=== PATIENT | female | born 1960 | race Caucasian/White ===

== ENCOUNTER 2022-09-02 08:22 | Outpatient (CLI) | payer OTHER, SELFPAY ==
--- NOTE | 2022-09-02 08:38 | ECG_ITS ---
Measurements Intervals [place] Rate: 69 P: 67 MS: 166 QRS: 53 QRSD: 78 T: 58 QT: 366 QTc: 393 Interpretive Statements SINUS RHYTHM BASELINE ARTIFACT NORMAL ECG NO PREVIOUS ECG AVAILABLE FOR COMPARISON Electronically Signed On 09-03-2022 14:48:45 CDT by Nathanael Ricci M.D.
[2022-09-02 09:32] LABS: Hematocrit 42.7 % (37.0-47.0); Hemoglobin 13.8 g/dL (12.0-15.0)
== END 2022-09-02 08:23 | disposition home or self-care (01) ==
PROVIDERS: Anesthesiology; PCP Hospitalist; Visit Provider Surgery Plastic and Reconstructive Surgery
DX: Z41.1 Encounter for cosmetic surgery (principal)
CPT/HCPCS: 36415; 85014; 85018; 93005

== ENCOUNTER 2022-09-06 00:58 | Day surgery (SDC) | payer OTHER, SELFPAY ==
[2022-08-30 14:21] VITALS: BMI 24.3
--- NOTE | 2022-08-30 14:27 | PC.NURSE ---
Report to the Outpatient Waiting Room, entrance under the green pavilion located off [facility], at time 6:00 on date 09/06/22. Planned Procedure Time: 7:30. Time changes happen often and if your time is changed the preop area will call you the afternoon before. - You and your visitor will be asked to self-screen and do not enter if you have any COVID symptoms. - Only one visitor is requested with a max of two and NO children visitors are allowed at this time. - The patient visitor may be requested to leave or wait in car when not with patient due to distancing restrictions. - A mask is optional within the hospital at this time. Patients may have clear liquids (water, carbonated beverages, clear teas, apple juice) until 3 hours prior to surgery (4:30) with a maximum of 20 ounces. - No food from midnight until time of surgery Take the following medications with a SIP of water the morning of surgery: BUPROPION, LORAZEPAM IF NEEDED DO NOT STOP ANY OF YOUR OTHER PRESCRIPTION MEDICATIONS PRIOR TO SURGERY EXCEPT THE FOLLOWING Medications to discontinue per physician: N/A Date to take last dose: N/A Please no make-up, nail mohawk, hairspray, perfume, deodorant, or body powder the day of surgery. No jewelry (including any body piercings) or valuables the day of surgery, leave them at home. Please take a shower or bath the night before, or the morning of, surgery with an antibacterial soap. Wear comfortable, loose fitting clothing. - Jewelry must be removed prior to entering the operating room. Rings and piercings that are not removed may be cut off. - The hospital will not accept responsibility for valuables. - Please leave all valuables, including medications, at home the day of surgery. If you are going home after surgery, a licensed driver lifter of sanitation truck must drive you home. - NO public transportation without another adult if you receive anesthesia. - We recommend that an adult stay with you for 24 hours following discharge. - We also recommend that you do not drive, make important decision, drink alcoholic beverages, or take any drugs that were not prescribed by your health care provider for at least 24 hours after your discharge time. Follow any additional instructions given to you from your surgeon. If you or anyone in your household have experienced Covid symptoms in the past week, please notify your surgeon or the nurse liaison at the phone number below for possible testing. Telephone instructions given to PT - JOSE NAM and asked if any additional questions and then verbalized understanding. Patient advised to call surgeon office or pre surgery nurse liaison [phone] if any additional questions.
[2022-09-06] VITALS (16 sets, daily range): BP systolic 106–128; BP diastolic 60–80; PULSE 71–123; RESP 12–18; TEMP 36.4–36.7; O2SAT 98–100
[2022-09-06 06:35] LABS: Urine Cotinine NEGATIVE
[2022-09-06] MEDS: LACTATED RINGERS 1,000 ML 30 ML IV CONT ×2 (06:49→14:26)
[2022-09-06] MEDS: SCOPOLAMINE 1.5 MG PATCH TRANSDERM (06:53)
--- NOTE | 2022-09-06 07:08 | WPDHPUPDATE1 ---
History and Physical Update Update Date/Time: 09/06/22 07:08 History and Physical has been reviewed, including an updated exam of the patient. There are NO changes in the patient's condition. Risks, benefits, and alternatives have been discussed and questions answered. Patient agrees to proceed with procedure.
--- NOTE | 2022-09-06 07:09 | W.PM.PROC2 ---
Procedure Note - Detailed Date of Procedure 09/06/22 Pre-op Diagnosis Hx of Breast Aug, Skin Laxity Post-op Diagnosis Same Procedure Performed 1. Bilateral breast implant exchange with capsulectomy. 2. Face / neck lift Surgeon Delgado Leon MD Anesthesia General Findings Previous implants: Bilateral ruptued silicone smooth No seroma. New implants: Bilateral saline 350cc filled to 370cc Right - REF# [id number] SN [id number] Left - REF# [id number] SN [id number] Description of Procedure Preoperatively the risks, benefits, alternatives were discussed in extensive detail. I want her to be very realistic about the risks involved as well as expectations. Reviewed what we can and cannot accomplish. Realistic expectations of outcome. All questions were answered to satisfaction. Consent obtained. She was taken the operating room placed supine on the operating room table. Anesthesia provided by anesthesiology and prepped and draped in a standard sterile fashion. Surgical time-out was taken. 1% lidocaine and 0.25% Marcaine with epinephrine was used to provide a field block. Tegaderm nipple ibanez were placed. Fifteen blade used to excise the previous IMF scars. Dissection was continued down until the capsules were identified and excised a significant portion of the capsule which was sent to pathology. Bilateral implants were ruptured. I then copiously irrigated with 3 L of saline solution on TUR tubing. Verified strict hemostasis. I then irrigated with Betadine containing solution. The implant was prepare on the back table with all air removed. Implant introduced into the pocket and filled with saline using a closed fill kit. This was closed with 2-0 PDS followed by 3-0 Monocryl and a running subcuticular 4-0 Monocryl followed by tissue glue. We then re-prepped and draped for face / neck lift. Local anesthesia was provided with a tumescent solution using lidocaine, epinephrine, and TXA. Once adequate time for effect a fifteen blade used to make a submental incision. Dissection was continued down identified platysma muscle. Elevated skin flaps with good adiposity of the deep surface throughout the neck. I then went sub platysmal and elevated bilateral. There was minimal adiposity with some intradiagstric hollowing even before treatment. I debulked bilateral digastric. Minimal submandibular gland hypertrophy (no resection). Care was taken to make sure there was a good smooth contour under the submental area. Platysma muscle was secured at the level of the hyoid with a 2-0 PDS. I completed platysmal transection at the midline at the level of the hyoid and repaired the platysma inferior with running 2-0 PDS. The submental platysma was repaired with 2-0 PDS securing to the deep fascia. I then proceeded made the remainder of the incisions. I elevated skin flaps with good adequate adiposity of the deep surface to have good contour. This was continued for all the areas necessary for mobilization. I then plicated the SMAS bilateral in oblique fasion from gonial angle toward lateral canthus with 2-0 PDS followed by 3-0 Vicryl. I created a platysmal hammock releasing just inferior to the mandibular angle after elevation. No evidence of injury to the marginal mandibular nerve. The was secured to mastoid fasia with 2-0 PDS. Copious irrigated with saline solution and verified strict hemostasis. I placed 10 Servando drains the right 1 went subcutaneous left 1 a broad around under the platysma muscle. These drains were sutured in place postauricular with this 3-0 Vicryl. The skin flaps were just placed into position without any tension. Trimmed as necessary. Preauricular was closed with 5 0 nylon. Postauricular with 5 0 chromic. I did kylah in the hairline. Submental was closed using 3-0 Monocryl followed by running subcuticular 4-0 Monocryl and tissue glue. Dressings were placed. After closure it was noted that s
--- NOTE | 2022-09-06 07:26 | P.PNAN_ITS ---
Anes - Initial Pre Proc Eval Procedure: Operation Date: 09/06/22 07:30 Proposed Procedures p Bilateral Breast Implant Exchange with Capsulectomy - Delgado Leon MD s Face and Neck Lift - Delgado Leon MD Date/Time: 09/06/22 07:26 Surgeon: Delgado Leon MD Pre Op Diagnosis: Hx of Breast Aug, Skin Laxity Patient Data Age: 61 Gender: F Height: 1.63 m Weight: 63.1 kg Last Vital Signs Temp 97.6 F 09/06/22 06:14 Pulse 71 09/06/22 06:14 Resp 16 09/06/22 06:14 BP 108/66 09/06/22 06:14 Pulse Ox 100 09/06/22 06:14 O2 Del Method Room Air 09/06/22 06:14 Allergies Allergy/AdvReac Type Severity Reaction Status Date / Time Sulfa (Sulfonamide Allergy Severe Anaphylaxis Verified 09/06/22 06:34 Antibiotics) Home Medications Medication Instructions Recorded Confirmed Type pseudoephedrine HCl 120 mg 120 mg PO Q12H 12/14/20 09/06/22 History tablet,extended release (Sudafed 12 Hour) bupropion HCl 150 mg 24 hr tablet, 150 mg PO QAM 08/30/22 09/06/22 History extended release lorazepam 0.5 mg tablet 0.5 mg PO BID PRN Anxiety 08/30/22 09/06/22 History ascorbate calcium (vitamin C) 814 814 mg PO DAILY 09/06/22 09/06/22 History mg/gram oral powder niacin 50 mg tablet 50 mg PO DAILY 09/06/22 09/06/22 History vitamin B complex 1 cap PO DAILY 09/06/22 09/06/22 History Laboratory Tests 09/06/22 06:14 Cotinine Negative Patient hx anesthesia problems: none Family hx anesthesia problems: none Results Review: All pre-operative results and documents have been reviewed as part of the pre- operative evaluation. [facility] Surgical History Surgical History (Updated 12/14/20 @ 09:51 by Delgado Leon MD) History of blepharoplasty Lower eyelids - 2010 Social History Social History (Updated 12/14/20 @ 09:03 by Katherine Hodge [facility]) Smoking packs per day: 0.5 Smoking cigarettes per day: 10.0 Years smoked: 10 Smoking pack-years: 5.00 Smoking status: Former smoker Tobacco type: cigarettes Smoking end date: 10/27/21 Alcohol intake: never Substance use: never Substance use type: does not use Living arrangements: with family Spiritual care concerns: No Anes - Eval Final PreProcedure Day of Procedure 09/06/22 07:26 Patient weight: normal Heart: regular rate and rhythm Lungs: clear to auscultation Airway: Mallampati scale class II Neurological: alert and oriented Last oral intake: >/= 8 hours ASA classification: II Emergent: no Anesthetic plan: proceed Anesthesia type and monitoring: general ETT and standard monitoring Results Review: All pre-operative results and documents have been reviewed as part of the pre- operative evaluation. Informed Consent: The patient's anesthetic plan and its attendant risks and benefits were discussed with the patient/family/POA. Questions were solicited and answers provided to the satisfaction of the patient/family/POA.
[2022-09-06] MEDS: LIDO 1%/EPINEPHRINE 1:100,000 50 ML VIAL 30 ML INFILTRATE (07:39)
[2022-09-06] MEDS: BACITRACIN OINTMENT 15 GM TUBE 1 APPLIC TOPICAL (07:39)
[2022-09-06] MEDS: NACL 0.9% IRRIG POUR BOTTLE 900 ML, GENTAMICIN SULFATE INJ 160 MG, CLINDAMYCIN PHOS INJ... IRRIGATION (07:39)
[2022-09-06] MEDS: BUPivacaine HCL 0.25% PF 30 ML VIAL INFILTRATE (07:39)
[2022-09-06] MEDS: ceFAZolin 2 GM/D5W 50 ML 2 GM/50 ML BAG IVPB (07:39)
[2022-09-06] MEDS: TRANEXAMIC ACID 1,000MG/ISO100 1,000 MG/100 ML BAG 200 MG IVPB (07:46)
[2022-09-06] MEDS: NEOMYCIN/POLYMYXIN/BACITRACIN OPHTH OINTMENT 3.5 GM TUBE 1 APPLIC EACH EYE (13:06)
--- NOTE | 2022-09-06 14:15 | SUR.OPER ---
EBL:50cc, URINE: 450cc
[2022-09-06] MEDS: fentaNYL CITRATE INJ (*CRX) 100 MCG/2 ML VIAL 25 MCG IV PUSH ×5 (14:42→18:45)
[2022-09-06] MEDS: ARTIFICIAL TEARS OPHTH SOLN 15 ML BOTTLE 1 DROP EACH EYE (15:35)
[2022-09-06] MEDS: oxyCODONE HCL (*CRX) 5 MG TAB IR PO (15:35)
[2022-09-06] MEDS: PROPARACAINE HCL 0.5% 15 ML OPHTH SOLN 1 DROP EACH EYE (16:21)
[2022-09-06] MEDS: DICLOFENAC SODIUM 0.1% OPHTH SOLN 2.5 ML BOTTLE 1 DROP EACH EYE (16:21)
--- NOTE | 2022-09-06 17:45 | SUR.PHASEII ---
1615: Dr Leon notified of KANDI drain loss of suction. 1630: RN PEDIATRIC at patient side to attempt to redress KANDI site without success of suction. Dr. Leon notified. Stated he will see patient in office tomorrow. 1700: Dr. Leon notified of patient soft, bruised, bulging to Right side of neck. STated he will see patient in am in office. 1715: Dr. Leon notified again of bruising to Right side of neck. Dr. Leon spoke with patient's on phone and told this RN he will see patient in am in office. 1730: Spoke with Dr. Leon about patient and patient's family requesting and admission to inpatient. Dr. Leon to put in orders remotely.
[2022-09-06] MEDS: ONDANSETRON INJ 4 MG/2 ML VIAL IV PUSH ×2 (19:00→22:46)
--- NOTE | 2022-09-06 19:08 | PC.NURSE ---
This patient, Veronika Manuel, was received from [Recovery] on 09/06/22 at 1908. Patient/family oriented to unit policies and routines.
--- NOTE | 2022-09-06 20:10 | SUR.PHASEII ---
pt was able to urinate at 1930.
[2022-09-06] MEDS: DOCUSATE SODIUM 100 MG CAPSULE PO (22:28)
[2022-09-06] MEDS: MORPHINE SULFATE (*CRX) 2 MG/ML INJ IV PUSH (22:30)
[2022-09-07 00:24] VITALS: BP 107/68; PULSE 87; RESP 14; TEMP 36.8; O2SAT 98
--- NOTE | 2022-09-07 01:12 | PC.NURSE ---
This patient, Veronika Denney Rosarionida, was received from on 09/07/22 at 0112. Patient/family oriented to unit policies and routines
[2022-09-07 05:35] VITALS: BP 103/61; PULSE 87; RESP 14; TEMP 36.8; O2SAT 100
--- NOTE | 2022-09-07 06:46 | WPDPN ---
Progress Note: A&P Assessment and Plan (1) Encounter for cosmetic surgery: Code(s): Z41.1 - Encounter for cosmetic surgery Status: Acute Plan Doing very well after bilateral breast implant exchange and face / neck lift. Will discharge home. Follow-up. Today again we had a lengthy discussion about the care. What to monitor for. Activity limitations. What is an emergency and when to call 911 / proceed to ER. Call with all other questiosn or concerns. We will see her back. Subjective Date/time seen: 09/07/22 06:46 Interval history: Doing very well after bilateral implant exchange and face / neck lift. Noted a little swelling inferior lateral on the right prior to discharge and patient was kept due to her concerns. Overnight and this morning has done very well. No f/c. No n/v. No SOB. No CP. No calf tenderness. Review of Systems Review of Systems: All systems reviewed & are unremarkable except as noted in HPI and below Exam Narrative: Alert & Oriented NOD Respiratory unlabored Bilateral breasts are soft. No signs of infection. No hematoma. No seroma. Facial nerve intact in all branches. Healing well. No sings of infection. No hematoma. No seroma. Good color / cap refill. Drain previously not holding suction; however, this AM able to maintain suction. No calf tenderness. Negative Radha's Objective Data Vital Signs Vital Signs: Vital Signs - 24 hr 09/06/22 14:26 09/06/22 14:30 09/06/22 14:45 Temperature 36.6 C Pulse Rate 114 H 123 H 118 H Respiratory Rate 13 18 13 Blood Pressure 106/62 128/61 109/61 Pulse Oximetry 100 98 100 Oxygen Delivery Simple Face Mask Room Air Room Air Oxygen Flow Rate 10 09/06/22 15:00 09/06/22 15:07 09/06/22 15:10 Temperature Pulse Rate 112 H 113 H 110 H Respiratory Rate 13 12 14 Blood Pressure 115/62 109/64 125/80 Pulse Oximetry 100 100 Oxygen Delivery Room Air Room Air Room Air Oxygen Flow Rate 09/06/22 15:40 09/06/22 16:00 09/06/22 16:30 Temperature 36.6 C Pulse Rate 105 H 99 101 H Respiratory Rate 14 16 15 Blood Pressure 126/78 120/63 115/64 Pulse Oximetry Oxygen Delivery Room Air Room Air Room Air Oxygen Flow Rate 09/06/22 17:00 09/06/22 17:30 09/06/22 18:00 Temperature Pulse Rate 95 96 95 Respiratory Rate 16 15 14 Blood Pressure 109/60 122/68 119/66 Pulse Oximetry Oxygen Delivery Room Air Room Air Room Air Oxygen Flow Rate 09/06/22 18:30 09/06/22 18:57 09/06/22 21:36 Temperature Pulse Rate 92 91 71 Respiratory Rate 15 16 16 Blood Pressure 120/61 110/63 Pulse Oximetry 100 Oxygen Delivery Room Air Room Air Room Air Oxygen Flow Rate 09/06/22 21:36 09/07/22 00:24 09/07/22 00:24 Temperature 36.7 C 36.8 C Pulse Rate 71 87 87 Respiratory Rate 14 14 14 Blood Pressure 108/65 107/68 Pulse Oximetry 98 98 98 Oxygen Delivery Room Air Oxygen Flow Rate 09/07/22 05:35 09/07/22 05:35 Temperature 36.8 C Pulse Rate 87 87 Respiratory Rate 14 14 Blood Pressure 103/61 Pulse Oximetry 100 100 Oxygen Delivery Oxygen Flow Rate Intake/Output Intake/Output: Intake & Output 09/04/22 09/05/22 09/06/22 09/07/22 23:59 23:59 23:59 23:59 Intake Total 200 600 Output Total 304 905 Balance -104 -305 Meds/Results Medications: Active Medications Generic Name Dose Route Start Last Admin Trade Name Freq PRN Reason Stop Dose Admin Artificial Tears 1 drop 09/06/22 15:32 09/06/22 15:35 Artificial Tears Ophth Soln 15 Ml Bottle EACH EYE 1 drop PRN PRN Administration Dry Eye(s) Artificial Tears 1 drop 09/06/22 16:06 Artificial Tears Ophth Soln 15 Ml Bottle EACH EYE Q2H PRN Dry Eye(s) Bupropion HCl 150 mg 09/07/22 09:00 Bupropion Hcl Xl (24 Hr) 150 Mg Tabcr PO QAM DES Diazepam 5 mg 09/06/22 18:08 Diazepam (*Crx) 5 Mg Tablet PO TID PRN Anxiety Docusate Sodium 100 mg 09/06/22 21:00 09/06/22 22:28 Docu
--- NOTE | 2022-09-07 06:52 | P.DS_ITS ---
DS: Admitting Diagnosis Discharge Date 09/07/2022 Admitting Diagnosis Encounter cosmetic surgery DS: Discharge Diagnosis Discharge Diagnosis (1) Encounter for cosmetic surgery: Code(s): Z41.1 - Encounter for cosmetic surgery Status: Acute DS: Summary Hospital Course Hospital Course: Doing well after bilateral breast implant exchange and face / neck. Will discharge home. Follow-up next week. Time Spent with Patient Time attestation: Total time spent providing and/or coordinating discharge services: Exam Narrative: Alert & Oriented NOD Respiratory unlabored Bilateral breasts are soft. No signs of infection. No hematoma. No seroma. Facial nerve intact in all branches. Healing well. No sings of infection. No hematoma. No seroma. Good color / cap refill. Drain previously not holding suction; however, this AM able to maintain suction. No calf tenderness. Negative Radha's DS: Data Data Completed and Pending Pending studies at discharge: Pending at discharge 09/06/22 09:52 Surgical [PTH] Routine Surgical [PTH] Routine Discharge Plan Discharge Patient Disposition: Home, Self-Care Discharge Instructions: POST OPERATIVE DISCHARGE INSTRUCTIONS DELGADO LEON M.D. [facility] PLASTIC SURGERY [facility] [place] [address] * No driving for 24 hours after anesthesia and while you are taking pain medication. * Take all prescribed medication as directed * Diet as tolerated. * No lifting or activity that raises blood pressure for 48 hours. * Regular walking / ambulation. * No showering until directed to. Once you shower do not take pain medication before showering as the combination of medication and heat may cause you to feel dizzy or pass out. * No pools or tubs for 2 weeks. * Call with any questions or concerns. * Dressing Care: Leave in place until follow-up. * You will need to empty your drain twice a day and record the output. Also, empty if it is greater than half full as needed. If you have any questions or concerns, please call the office . If it is after hours you will be directed to the classroom instructional aide exchange. Shortness of breath, chest pain, or other medical emergency dial 911 / proceed to the Emergency Room. Remove the Scopolamine patch that was placed behind your ear in 72 hours or less. Wash your hands after touching. Patient Instructions: Bruce-Gloria Drain Care (GEN) Stand Alone Forms: General Discharge Instructions Follow-up/Referrals: Delgado Leon MD [Physician] - Other (Tomorrow 09/07/2022) Discharge Orders: Discharge Order (Routine); Ordered 09/07/22 Ordered By: Delgado Leon Discharge Medications: Continued pseudoephedrine HCl [Sudafed 12 Hour] 120 mg tablet extended release 120 mg PO Q12H lorazepam 0.5 mg Tablet 0.5 mg PO BID PRN (Reason: Anxiety) bupropion HCl 150 mg Tablet Extended Release 24 Hr 150 mg PO QAM niacin 50 mg Tablet 50 mg PO DAILY vitamin B complex Capsule 1 cap PO DAILY ascorbate calcium (vitamin C) 814 mg/gram
[2022-09-07 08:00] VITALS: BP 98/55; PULSE 80; RESP 16; TEMP 36.6; O2SAT 100
--- NOTE | 2022-09-07 08:00 | PC.NURSE ---
PT introductions made and plan of care discussed per post op cosmetic surgery, pain management, daily care activities and pending discharge to home. PT sole recipient of such instructions and no barriers to learning identified at this time. PT received instructions per one to one discussion, handouts, and demonstrations. Pt verbalized understanding of such care.
--- NOTE | 2022-09-07 08:00 | PC.NURSE ---
PT refused abdominal binder
[2022-09-07] MEDS: oxyCODONE/ACETAMINOPHEN (*CRX) 5-325 MG TABLET PO (08:43)
[2022-09-07] MEDS: buPROPion HCL XL (24 HR) 150 MG TABCR PO (08:43)
[2022-09-07] MEDS: IBUPROFEN 600 MG TABLET PO (08:44)
[2022-09-07] MEDS: DOCUSATE SODIUM 100 MG CAPSULE PO (08:44)
[2022-09-07 08:45] VITALS: PULSE 80; RESP 16; O2SAT 100
--- NOTE | 2022-09-07 09:32 | PC.NURSE ---
On 09/07/22, the student, Michael Brasher, provided care and completed [facility] documentation on this patient. I have reviewed the student's documentation and agree with the findings.
--- NOTE | 2022-09-07 10:30 | PC.NURSE ---
PT received discharge instructions per protocol and verbalized understanding of such care.
--- NOTE | 2022-09-07 10:55 | PC.NURSE ---
PT discharged to home via wheelchair accompanied by spouse and taken to waiting car. follow up appts confirmed.
== END 2022-09-07 10:55 | disposition home or self-care (01) ==
LOC: ANHSURGERY 15:50 → ANHOB2 19:34
PROVIDERS: PCP Hospitalist; Visit Provider Surgery Plastic and Reconstructive Surgery
PROC: (CPT 19370; principal; 2022-09-06 07:30)
PROC: (CPT 15824; 2022-09-06 07:30)
DX: Z41.1 Encounter for cosmetic surgery (principal); L57.4 Cutis laxa senilis; T85.41XA Breakdown (mechanical) of breast prosthesis and implant, initial encounter; Y83.8 Other surgical procedures as the cause of abnormal reaction of the patient, or of later complication, without mention of misadventure at the time of the procedure; Z87.891 Personal history of nicotine dependence
CPT/HCPCS: 19370; 19325; 15825; 15829; 80307; 88304; 99199; A9270; J0171; J0690; J1100; J1170; J1580; J2250; J2270; J2405; J2704; J3010; J7030; J7120